=== PATIENT | female | born 1960 | race Caucasian/White ===

== ENCOUNTER → 2018-05-14 | Day surgery (SDC) | payer OTHER ==
[~2018-05-14] VITALS: Ht 167.6 cm; Wt 51.7 kg
[~2018-05-14] MED LIST: CIPROFLOXACIN500 MG PO; FISH OIL 1,0001 EAC4 PO; VICO75300 PO; VICODIN 500 MG-1 TAB PO; VITAMIN D5000 UNIT PO; ZOFRAN ODT4 MG SL; ZOLOFT25 MG PO; [UNRECOGNIZED DRUG - OTHER] PO
--- NOTE | ~2018-05-14 | PROC NOTE ---
[place], [place] PROCEDURE NOTE NAME: MARY JANE ELENA UNIT #: [id number] ROOM: DOCTOR: PAUL SCHULTE MD BIRTHDATE: [birth year] DOS: 05/14/2018 PREOPERATIVE DIAGNOSIS: Screening examination, right lower quadrant abdominal pain. POSTOPERATIVE DIAGNOSIS: Sigmoid polyps x 2 (15, 20 cm from the anal verge). PROCEDURE: Flexible sigmoidoscopy with polypectomy x 2. SURGEON: Paul Schulte MD SOUP MIXER: DAVIAN. ANESTHESIA: MAC. INDICATIONS: This is a 58-year-old lady with a strong family history of colon cancer (patient's mother) who is here for a screening examination for right lower quadrant abdominal pain. The procedure and its complications were explained to the patient in detail preoperatively. Complications that were discussed included but were not limited to bleeding, missed lesions, colon perforation and prolonged pain. She agreed to proceed. DESCRIPTION OF PROCEDURE: After identifying the patient, the patient was brought to the endoscopy suite and placed in the left lateral position. After IV sedation was administered by the anesthesia team, a time-out procedure was called. A digital rectal exam was performed, which was within normal limits. There was grade 3 internal hemorrhoids that were spontaneously reduced. Adult colonoscope was now introduced into the anal canal and advanced sequentially into the anal canal, rectum and sigmoid colon up to approximately 40-50 cm from the anal verge. Despite multiple attempts, the scope could not be advanced beyond this point because of possible colon tortuosity. At this point, the scope was withdrawn at approximately 20 cm and 15 cm. Two polyps were visualized and both of these were removed with the help of a snare polypectomy. Specimen was sent for histopathological diagnosis in two separate specimen cups. Hemostasis was confirmed and the scope was then withdrawn. Internal hemorrhoids were again visualized without any complications. After the scope was withdrawn, the patient was brought back to the recovery room in stable fashion. Based on these findings, the patient is recommended to have another colonoscopy in 1 to 3 years for a followup. These findings were discussed with the patient's daughter in the recovery room and with the patient herself in the recovery room. [place], [place] PROCEDURE NOTE NAME: MARY JANE ELENA UNIT #: [id number] ROOM: DOCTOR: PAUL SCHULTE MD BIRTHDATE: [birth year] Paul Schulte MD CM:PROCNOTE:PROCEDURE NOTE [id number] PAUL SCHULTE MD
[2018-05-14 10:00] VITALS: BP 117/88
[2018-05-14 11:45] VITALS: BP 100/65
[2018-05-14 12:00] VITALS: BP 148/79
[2018-05-14 12:15] VITALS: BP 142/88
== END | disposition home or self-care (01) ==
LOC: SDC 05-09 08:00
DX: D12.5 Benign neoplasm of sigmoid colon (principal); K64.8 Other hemorrhoids; K63.89 Other specified diseases of intestine; F17.210 Nicotine dependence, cigarettes, uncomplicated; Z80.0 Family history of malignant neoplasm of digestive organs; Z79.899 Other long term (current) drug therapy; Z98.51 Tubal ligation status; Z82.49 Family history of ischemic heart disease and other diseases of the circulatory system; Z83.3 Family history of diabetes mellitus; Z98.890 Other specified postprocedural states; Z85.850 Personal history of malignant neoplasm of thyroid

== ENCOUNTER → 2018-06-18 | Outpatient (CLI) | payer OTHER | END | disposition home or self-care (01) | LOC: RAD 07:36 | DX: D12.5 Benign neoplasm of sigmoid colon (principal); R10.31 Right lower quadrant pain ==

== ENCOUNTER 2018-06-21 11:38 | Emergency (ER) | payer SELFPAY ==
[~2018-06-21] VITALS: Ht 167.6 cm; Wt 53.5 kg
[2018-06-21 12:19] LABS: BASO # 0.1 10*3/uL (0.0-0.1); BASO % 0.9 % (0.0-1.0); EOS # 0.2 10*3/uL (0.0-0.4); EOS % 2.3 % (1.0-4.0); HEMATOCRIT 39.4 % (37.0-47.0); HEMOGLOBIN 13.3 g/dl (12.0-16.0); LYMPH # 2.4 10*3/uL (1.3-4.4); LYMPH % 35.2 % (27.0-41.0); MEAN CELL VOLUME 89.7 fl (81.0-99.0); MEAN CORPUSCULAR HGB 30.3 pg (27.0-31.0); MEAN CORPUSCULAR HGB CONC 33.8 g/dl (33.0-37.0); MEAN PLATELET VOLUME 9.3 fl (9.6-12.3); MONO # 0.4 10*3/uL (0.1-1.0); MONO % 5.2 % (3.0-9.0); NEUT # 3.9 10*3/uL (2.3-7.9); NEUT % 56.3 % (47.0-73.0); PLATELET COUNT AUTOMATED 283 10*3/uL (130-400); RED BLOOD COUNT 4.39 10*6/uL (4.10-5.10); RED CELL DISTRI WIDTH 13.2 % (0-14.5); WHITE BLOOD COUNT 6.9 10*3/uL (4.8-10.8)
[2018-06-21 12:36] LABS: ALBUMIN 3.8 gm/dl (3.1-4.5); ALKALINE PHOSPHATASE 79 U/L (45-117); BUN 21 mg/dl (7-24); CHLORIDE 103 mmol/L (98-107); CREATININE 0.95 mg/dL (0.55-1.02); POTASSIUM 4.3 mmol/L (3.5-5.1); SGOT/AST 86 IU/L (3-35); SGPT/ALT 168 U/L (12-78); SODIUM 138 mmol/L (136-145); TOTAL PROTEIN 7.6 gm/dL (6.4-8.2)
[2018-06-21 12:54] LABS: BILIRUBIN NEGATIVE (NEGATIVE); BLOOD NEGATIVE (NEGATIVE); CLARITY SL CLOUDY (CLEAR); COLOR YELLOW (YELLOW); GLUCOSE NEGATIVE (NEGATIVE); KETONE NEGATIVE (NEGATIVE); LEUKO ESTERASE NEGATIVE (NEGATIVE); NITRITE POSITIVE (NEGATIVE); UROBILINOGEN 0.2 E.U./dl (0.2-1.0)
[2018-06-21 13:16] LABS: BACTERIA 4+
[2018-06-21 16:08] LABS: LIPASE 129 U/L (73-393)
== END 2018-06-22 14:39 | disposition short-term general hospital (02) ==
LOC: ED 11:38
PROVIDERS: Emergency Medicine
DX: C25.7 Malignant neoplasm of other parts of pancreas (principal); Z98.51 Tubal ligation status; Z98.890 Other specified postprocedural states; Z79.899 Other long term (current) drug therapy

== ENCOUNTER 2018-11-18 16:49 | Emergency (ER) | payer OTHER ==
[~2018-11-18] VITALS: Ht 167.6 cm; Wt 49.4 kg
--- NOTE | ~2018-11-18 | EKG ---
[place], [place] ELECTROCARDIOGRAM REPORT NAME: MARY JANE ELENA UNIT #: [id number] ROOM: DOCTOR: EPIPHANY DRAFT REPORT BIRTHDATE: [birth year] [facility] Test Date: 2018-11-18 Test Time: 17:14:36 Pat Name: MARY JANE ELENA Department: Room: Gender: F Needle Straightener: : 1960 Requested By: ZAINA CABRERA Order Number: [id number] Reading MD: Mark Paez MD Measurements Intervals [place] Rate: 106 P: 76 MT: 123 QRS: 92 QRSD: 83 T: 1 QT: 353 QTc: 469 Interpretive Statements Sinus tachycardia Borderline right axis deviation Borderline repolarization abnormality Electronically Signed On 11-21-2018 14:42:37 PDT by Mark Paez MD CM:EKGRPT:ELECTROCARDIOGRAM REPORT [id number] ZAINA MONTEMAYOR DRAFT REPORT ZAINA CABRERA MD
[2018-11-18 17:42] LABS: HEMATOCRIT 41.9 % (37.0-47.0); HEMOGLOBIN 13.9 g/dl (12.0-16.0); MEAN CELL VOLUME 87.3 fl (81.0-99.0); MEAN CORPUSCULAR HGB CONC 33.2 g/dl (33.0-37.0); MEAN PLATELET VOLUME 9.9 fl (9.6-12.3); PLATELET COUNT AUTOMATED 155 10*3/uL (130-400); RED CELL DISTRI WIDTH 18.1 % (0-14.5)
[2018-11-18 17:53] LABS: ACT PARTIAL THROMBO TIME 25.8 SECONDS (20.0-32.1)
[2018-11-18 18:05] LABS: ALKALINE PHOSPHATASE 243 U/L (45-117); BUN 16 mg/dl (7-24); CHLORIDE 109 mmol/L (98-107); PLATELET SUFFICIENCY NORMAL (NORMAL); POTASSIUM 3.8 mmol/L (3.5-5.1); SGOT/AST 16 IU/L (3-35); SGPT/ALT 21 U/L (12-78); SODIUM 142 mmol/L (136-145); TOTAL CELLS COUNTED 100 #CELLS; TOTAL PROTEIN 8.4 gm/dL (6.4-8.2)
[2018-11-18 18:07] LABS: TROPONIN I < 0.015 ng/ml (<0.045); WHITE BLOOD COUNT 48.9 10*3/uL (4.8-10.8)
[2018-11-18 21:02] LABS: BILIRUBIN NEGATIVE (NEGATIVE); BLOOD NEGATIVE (NEGATIVE); CLARITY CLEAR (CLEAR); COLOR YELLOW (YELLOW); GLUCOSE NEGATIVE (NEGATIVE); KETONE TRACE (NEGATIVE); LEUKO ESTERASE NEGATIVE (NEGATIVE); NITRITE NEGATIVE (NEGATIVE); PH 5.5 (5.0-9.0); SPECIFIC GRAVITY 1.015 (1.005-1.030); UROBILINOGEN 0.2 E.U./dl (0.2-1.0)
[2018-11-18 21:04] LABS: MUCOUS 1+
== END 2018-11-19 00:26 | disposition home or self-care (01) ==
LOC: ED 16:49
PROVIDERS: Emergency Medicine
DX: D64.9 Anemia, unspecified (principal); R53.83 Other fatigue; R19.7 Diarrhea, unspecified; F17.200 Nicotine dependence, unspecified, uncomplicated; Z98.51 Tubal ligation status; Z98.890 Other specified postprocedural states; Z79.899 Other long term (current) drug therapy; Z85.07 Personal history of malignant neoplasm of pancreas

== ENCOUNTER 2019-10-17 20:17 | Emergency (ER) | payer OTHER ==
[~2019-10-17] VITALS: Wt 47.2 kg
[2019-10-17 21:16] LABS: HEMATOCRIT 28.8 % (37.0-47.0); MEAN CELL VOLUME 80.2 fl (81.0-99.0); MEAN CORPUSCULAR HGB 25.6 pg (27.0-31.0); MEAN CORPUSCULAR HGB CONC 31.9 g/dl (33.0-37.0); MEAN PLATELET VOLUME 9.1 fl (9.6-12.3); PLATELET COUNT AUTOMATED 368 10*3/uL (130-400); RED BLOOD COUNT 3.59 10*6/uL (4.10-5.10); RED CELL DISTRI WIDTH 17.4 % (0-14.5)
[2019-10-17 21:32] LABS: ALBUMIN 2.3 gm/dl (3.1-4.5); ALKALINE PHOSPHATASE 171 U/L (45-117); BUN 12 mg/dl (7-24); CHLORIDE 100 mmol/L (98-107); POTASSIUM 3.2 mmol/L (3.5-5.1); SGOT/AST 36 IU/L (3-35); SGPT/ALT 31 U/L (12-78); SODIUM 134 mmol/L (136-145); TOTAL PROTEIN 6.3 gm/dL (6.4-8.2)
[2019-10-17 21:37] LABS: TOTAL CELLS COUNTED 100 #CELLS
[2019-10-17 21:38] LABS: MICROCYTOSIS SLIGHT; PLATELET SUFFICIENCY NORMAL (NORMAL)
[2019-10-18] MEDS ORDERED: LEVAQUIN750 M1 PO (01:03)
[2019-10-18] MEDS ORDERED: FLAGYL500 MG PO (01:03)
== END 2019-10-18 03:45 | disposition home or self-care (01) ==
LOC: ED 20:17
PROVIDERS: Internal Medicine
DX: C25.9 Malignant neoplasm of pancreas, unspecified (principal); A41.9 Sepsis, unspecified organism; F32.9 Major depressive disorder, single episode, unspecified; F17.200 Nicotine dependence, unspecified, uncomplicated; Z79.899 Other long term (current) drug therapy